=== PATIENT | female | born 1965 | race Two or more races ===

== ENCOUNTER 2019-11-14 19:04 | Inpatient (IN) | payer OTHER ==
[~2019-11-14] VITALS: Ht 165.1 cm; Wt 68.7 kg
[2019-11-14] MEDS ORDERED: KETOROLAC 30MG/ML VIAL IV ONE (19:30)
[2019-11-14 20:53] LABS: BASOPHILS % 0.3 % (0.0-2.0); HEMATOCRIT. 38.2 % (36.0-48.0); HEMOGLOBIN. 12.9 g/dL (12.0-16.0); LYMPHOCYTES % 13.5 % (20.0-50.0); MEAN CORPUSCULAR HEMOGLOBIN 30.6 pg (28.0-32.0); MEAN CORPUSCULAR VOLUME 90.4 fL (81.0-99.0); MEAN PLATELET VOLUME 7.8 fl (7.4-10.4); MONOCYTES % 7.3 % (2.0-8.0); NEUTROPHILS % 78.9 % (40.0-76.0); PLATELET 212 x1000/uL (130-400); RED BLOOD CELL COUNT 4.22 mill/uL (4.2-5.4); RED CELL DISTRIBUTION WIDTH 13.9 % (11.6-14.6)
[2019-11-14 21:01] LABS: CHLORIDE 106 mEq/L (98-107)
[2019-11-15] MEDS ORDERED: LIDOCAINE HCL/PF 1% 2ML VIAL ONE (11:29)
[2019-11-15] MEDS: ZINC SULFATE 220 MG ( 50 ) CAPSULE PO SCH (12:30)
[2019-11-15] MEDS ORDERED: MAGNESIUM/ALUMINUM HYDROXIDE/SIMETHICONE 30ML UDC PO PRN (12:30)
[2019-11-15] MEDS ORDERED: IPRATROPIUM/ALBUTEROL 0.5-3(2.5)MG/3ML NEB NEB PRN (12:30)
[2019-11-15] MEDS: AZITHROMYCIN 500 MG TABLET PO SCH (12:30)
[2019-11-15] MEDS ORDERED: DIPHENHYDRAMINE 50MG/ML VIAL IV PRN (12:30)
[2019-11-15] MEDS ORDERED: CEFTRIAXONE 1 G PREMIX 50 ML IV SCH (12:30)
[2019-11-15] MEDS ORDERED: DOCUSATE SODIUM 100MG CAPSULE PO PRN (12:30)
[2019-11-15] MEDS ORDERED: LORAZEPAM 0.5MG TABLET PO PRN (12:30)
[2019-11-15] MEDS ORDERED: HYDROCODONE/ACETAMINOPHEN 5/325MG TABLET PO PRN (12:30)
[2019-11-15] MEDS: ASCORBIC ACID 500 MG TABLET PO SCH (12:30)
[2019-11-15] MEDS ORDERED: CLONIDINE 0.1MG TABLET PO PRN (12:30)
[2019-11-15] MEDS ORDERED: ACETAMINOPHEN 325MG TABLET PO PRN (12:30)
[2019-11-15] MEDS ORDERED: GUAIFENESIN 200MG/10ML SUGAR FREE UDC PO PRN (12:30)
[2019-11-15] MEDS ORDERED: ACETAMINOPHEN 650MG SUPP PR PRN (12:30)
[2019-11-15] MEDS ORDERED: ONDANSETRON HCL 4MG/2ML INJ IV PRN (12:30)
[2019-11-15 13:06] LABS: BG BASE EXCESS 1.8 mmol/L (-2.0-2.0); BG CARBOXYHEMOGLOBIN 0.3 % (0.5-1.5); BG DEOXYHEMOGLOBIN 5.3 % (0.0-5.0); BG HCO3 ACT 25.7 mmol/L (22.0-26.0); BG METHEMOGLOBIN 0.3 % (0.0-1.5); BG OXYGEN SATURATION 94.7 % (92.0-98.5); BG OXYHEMOGLOBIN 94.1 % (94.0-97.0); BG PCO2 37.5 mmHg (35.0-45.0); BG PH 7.453 (7.350-7.450); BG PO2 71.6 mmHg (75.0-100.0); BG SAMPLE SITE RIGHT RADIAL; BG TOTAL HEMOGLOBIN 12.4 g/dL (12.0-18.0); BG VENT MODE ROOM AIR
[2019-11-15] MEDS ORDERED: METHYLPREDNISOLONE SOD SUCC 40 MG/ML VIAL IV ONE (13:45)
[2019-11-15] MEDS ORDERED: IPRATROPIUM/ALBUTEROL 0.5-3(2.5)MG/3ML NEB HHN ONE (13:45)
[2019-11-15] MEDS: ENOXAPARIN 40MG/0.4ML SYR SUBCUT SCH (13:52)
[2019-11-15] MEDS: ALBUTEROL 6.7GM HFA INHALER ORI SCH ×2 (15:00→21:30)
[2019-11-15] MEDS ORDERED: DEXAMETHASONE 10 MG/ML VIAL PO SCH (15:30)
[2019-11-15 16:47] LABS: BASOPHILS % 0.2 % (0.0-2.0); EOSINOPHILS % 0.5 % (0.0-5.0); HEMATOCRIT. 37.5 % (36.0-48.0); LYMPHOCYTES % 11.4 % (20.0-50.0); MEAN CORPUSCULAR HEMOGLOBIN 31.2 pg (28.0-32.0); MEAN CORPUSCULAR VOLUME 90.2 fL (81.0-99.0); MONOCYTES % 5.4 % (2.0-8.0); NEUTROPHILS % 82.5 % (40.0-76.0); PLATELET 232 x1000/uL (130-400); RED BLOOD CELL COUNT 4.16 mill/uL (4.2-5.4); RED CELL DISTRIBUTION WIDTH 13.6 % (11.6-14.6)
[2019-11-15 16:53] LABS: CHLORIDE 106 mEq/L (98-107)
[2019-11-15 17:03] LABS: PROTHROMBIN TIME 10.4 sec (9.6-11.0)
[2019-11-15] MEDS ORDERED: IPRATROPIUM/ALBUTEROL 0.5-3(2.5)MG/3ML NEB NEB SCH (18:00)
[2019-11-15] MEDS: FAMOTIDINE 20MG TABLET PO SCH (21:00)
[2019-11-15 23:00] VITALS: BP_SYST 117; BP_SYST 129; BP_DIAS 67
[2019-11-15] MEDS ORDERED: TUSSL MT (23:50)
[2019-11-15] MEDS ORDERED: TOPUD PO (23:50)
[2019-11-16] MEDS: ALBUTEROL 6.7GM HFA INHALER ORI SCH ×4 (03:30→21:45)
[2019-11-16 04:00] VITALS: BP 130/75
[2019-11-16 08:00] VITALS: BP 117/72
[2019-11-16] MEDS: CEFTRIAXONE 1 G PREMIX 50 ML IV SCH (09:53)
[2019-11-16] MEDS: ASCORBIC ACID 500 MG TABLET PO SCH (09:54)
[2019-11-16] MEDS: AZITHROMYCIN 500 MG TABLET PO SCH (09:54)
[2019-11-16] MEDS: DEXAMETHASONE 4MG TABLET PO SCH (09:54)
[2019-11-16] MEDS: ZINC SULFATE 220 MG ( 50 ) CAPSULE PO SCH (09:54)
[2019-11-16 10:30] LABS: BASOPHILS % 0.1 % (0.0-2.0); HEMATOCRIT. 38.2 % (36.0-48.0); LYMPHOCYTES % 16.7 % (20.0-50.0); MEAN CORPUSCULAR HEMOGLOBIN 30.6 pg (28.0-32.0); MEAN CORPUSCULAR VOLUME 89.9 fL (81.0-99.0); MEAN PLATELET VOLUME 7.6 fl (7.4-10.4); MONOCYTES % 7.7 % (2.0-8.0); NEUTROPHILS % 75.5 % (40.0-76.0); PLATELET 294 x1000/uL (130-400); RED BLOOD CELL COUNT 4.24 mill/uL (4.2-5.4); RED CELL DISTRIBUTION WIDTH 13.6 % (11.6-14.6)
[2019-11-16 10:39] LABS: CHLORIDE 110 mEq/L (98-107)
[2019-11-16 10:49] LABS: LDL CHOLESTEROL 90 mg/dL (5-100)
[2019-11-16 10:51] LABS: HDL CHOLESTEROL 51 mg/dL (40-59)
[2019-11-16 11:33] LABS: BG BASE EXCESS -0.6 mmol/L (-2.0-2.0); BG CARBOXYHEMOGLOBIN 0.1 % (0.5-1.5); BG DEOXYHEMOGLOBIN 6.7 % (0.0-5.0); BG FRACTION INSPIRED OXYGEN 21; BG HCO3 ACT 22.3 mmol/L (22.0-26.0); BG METHEMOGLOBIN 0.3 % (0.0-1.5); BG OXYGEN SATURATION 93.3 % (92.0-98.5); BG OXYHEMOGLOBIN 92.9 % (94.0-97.0); BG PCO2 31.4 mmHg (35.0-45.0); BG PH 7.469 (7.350-7.450); BG PO2 64.1 mmHg (75.0-100.0); BG SAMPLE SITE LEFT BRACHIAL; BG TOTAL HEMOGLOBIN 12.4 g/dL (12.0-18.0); BG VENT MODE ROOM AIR
[2019-11-16 12:00] VITALS: BP 111/64
[2019-11-16] MEDS: ENOXAPARIN 40MG/0.4ML SYR SUBCUT SCH (13:18)
[2019-11-16] MEDS ORDERED: DEXTROSE 50% WATER 50ML SYRINGE IV PRN (15:30)
[2019-11-16] MEDS ORDERED: ENOXAPARIN 30MG/0.3ML SYR SUBCUT NR (15:30)
[2019-11-16 16:00] VITALS: BP 125/72
[2019-11-16] MEDS: BLOOD SUGAR DIAGNOSTIC STRIP TEST SCH ×2 (17:53→21:45)
[2019-11-16 20:00] VITALS: BP 121/78
[2019-11-16 21:08] LABS: HEPATITIS B SURFACE ANTIGEN NEGATIVE
[2019-11-16 21:38] LABS: HEPATITIS A AB IGM NEGATIVE (NEGATIVE)
[2019-11-16] MEDS: ENOXAPARIN 80MG/0.8ML SYR SUBCUT SCH (21:38)
[2019-11-16] MEDS: FAMOTIDINE 20MG TABLET PO SCH (21:38)
[2019-11-16] MEDS: INSULIN LISPRO 100 UNITS/ML SUBCUT SCH ×2 (21:46→21:49)
[2019-11-17] VITALS: BP 130/79
[2019-11-17] MEDS: ALBUTEROL 6.7GM HFA INHALER ORI SCH ×4 (03:32→21:20)
[2019-11-17 04:00] VITALS: BP_SYST 126; BP_SYST 90; BP_DIAS 60; BP_DIAS 72
[2019-11-17 07:28] LABS: HEMATOCRIT. 37.6 % (36.0-48.0); HEMOGLOBIN. 13.2 g/dL (12.0-16.0); MEAN CORPUSCULAR HEMOGLOBIN 31.3 pg (28.0-32.0); MEAN CORPUSCULAR VOLUME 89.1 fL (81.0-99.0); MEAN PLATELET VOLUME 7.7 fl (7.4-10.4); PLATELET 367 x1000/uL (130-400); RED BLOOD CELL COUNT 4.22 mill/uL (4.2-5.4); RED CELL DISTRIBUTION WIDTH 13.4 % (11.6-14.6)
[2019-11-17] MEDS: INSULIN LISPRO 100 UNITS/ML SUBCUT SCH ×4 (07:29→21:18)
[2019-11-17] MEDS: BLOOD SUGAR DIAGNOSTIC STRIP TEST SCH ×4 (07:29→21:13)
[2019-11-17 07:48] LABS: CHLORIDE 111 mEq/L (98-107)
[2019-11-17 08:00] VITALS: BP 131/66
[2019-11-17] MEDS: CEFTRIAXONE 1 G PREMIX 50 ML IV SCH (09:20)
[2019-11-17] MEDS: ZINC SULFATE 220 MG ( 50 ) CAPSULE PO SCH (09:21)
[2019-11-17] MEDS: AZITHROMYCIN 500 MG TABLET PO SCH (09:21)
[2019-11-17] MEDS: ASCORBIC ACID 500 MG TABLET PO SCH (09:21)
[2019-11-17] MEDS: DEXAMETHASONE 4MG TABLET PO SCH (09:21)
[2019-11-17] MEDS: ENOXAPARIN 80MG/0.8ML SYR SUBCUT SCH ×2 (09:21→21:19)
[2019-11-17 11:41] LABS: BG CARBOXYHEMOGLOBIN 0.1 % (0.5-1.5); BG DEOXYHEMOGLOBIN 5.5 % (0.0-5.0); BG FRACTION INSPIRED OXYGEN 21; BG HCO3 ACT 22.8 mmol/L (22.0-26.0); BG METHEMOGLOBIN 0.3 % (0.0-1.5); BG OXYGEN SATURATION 94.5 % (92.0-98.5); BG OXYHEMOGLOBIN 94.1 % (94.0-97.0); BG PCO2 31.6 mmHg (35.0-45.0); BG PH 7.477 (7.350-7.450); BG SAMPLE SITE RIGHT RADIAL; BG TOTAL HEMOGLOBIN 12.7 g/dL (12.0-18.0); BG VENT MODE ROOM AIR
[2019-11-17 12:00] VITALS: BP 128/75
[2019-11-17 16:00] VITALS: BP 110/58
[2019-11-17 18:35] LABS: PLATELET ESTIMATE NORMAL
[2019-11-17 20:00] VITALS: BP 127/74
[2019-11-17] MEDS: FAMOTIDINE 20MG TABLET PO SCH (21:18)
[2019-11-18] VITALS: BP 107/70
[2019-11-18 04:00] VITALS: BP 109/77
[2019-11-18] MEDS: ALBUTEROL 6.7GM HFA INHALER ORI SCH ×3 (04:19→15:30)
[2019-11-18] MEDS: BLOOD SUGAR DIAGNOSTIC STRIP TEST SCH ×3 (06:40→17:40)
[2019-11-18] MEDS: INSULIN LISPRO 100 UNITS/ML SUBCUT SCH ×3 (07:39→18:10)
[2019-11-18 08:00] VITALS: BP 132/69
[2019-11-18] MEDS: ZINC SULFATE 220 MG ( 50 ) CAPSULE PO SCH (09:52)
[2019-11-18] MEDS: CEFTRIAXONE 1 G PREMIX 50 ML IV SCH (09:52)
[2019-11-18] MEDS: DEXAMETHASONE 4MG TABLET PO SCH (09:52)
[2019-11-18] MEDS: AZITHROMYCIN 500 MG TABLET PO SCH (09:52)
[2019-11-18] MEDS: ENOXAPARIN 80MG/0.8ML SYR SUBCUT SCH (09:53)
[2019-11-18] MEDS: ASCORBIC ACID 500 MG TABLET PO SCH (09:53)
[2019-11-18 12:00] VITALS: BP 133/82
[2019-11-18 16:00] VITALS: BP 109/59
[2019-11-18 16:43] VITALS: BP 113/59
== END 2019-11-18 18:20 | disposition home or self-care (01) | DRG 177 ==
LOC: ER 19:04 → 7WST 23:06 → ENRESERV 11-15 21:47
PROVIDERS: ADMIT Internal Medicine; ATTEND Internal Medicine
DX: U07.1 COVID-19 (principal); J12.89 Other viral pneumonia; E66.9 Obesity, unspecified; R06.03 Acute respiratory distress; D72.810 Lymphocytopenia; R73.9 Hyperglycemia, unspecified; R74.0 Nonspecific elevation of levels of transaminase and lactic acid dehydrogenase [LDH]; R73.03 Prediabetes; Z68.25 Body mass index [BMI] 25.0-25.9, adult; Z79.1 Long term (current) use of non-steroidal anti-inflammatories (NSAID); Z79.899 Other long term (current) drug therapy
CPT/HCPCS: 36415; 36600; 71045; 76700; 80053; 80061; 80076; 82375; 82805; 82962; 83036; 83880; 84439; 84443; 84484; 85025; 86705; 86709; 86803; 86850; 86900; 87340; 93005; 93970; 94640; 96375; 99285; J0696; J1650; J1815; J1885; J2920; J3490; J8540; C9803-CS; U0003-CS